=== PATIENT | female | born 1940 | race Caucasian/White ===

== ENCOUNTER → 2024-07-08 | Outpatient (CLI) | payer OTHER, SELFPAY | END | disposition home or self-care (01) | LOC: SLDO 15:41 | PROVIDERS: PCP Nurse Practitioner Family; Referring Provider Nurse Practitioner Family; Visit Provider Nurse Practitioner Family | DX: N39.0 Urinary tract infection, site not specified (principal) | CPT/HCPCS: 87086 ==

== ENCOUNTER 2024-07-21 10:52 | Day surgery (SDC) | payer OTHER, SELFPAY ==
--- NOTE | 2024-07-20 07:00 | EKG_ITS ---
[facility] Test Date: 2024-07-20 Pat Name: ASHA TANG Department: Room: - Gender: Female [employer] Bi Developer: SUZANNE : 1940 Requested By: Gardenia Nash Order Number: [id number] Reading MD: Gardenia Nash Measurements Intervals [place] Rate: 60 P: 67 WV: 162 QRS: 57 QRSD: 132 T: 9 QT: 425 QTc: 427 Interpretive Statements SINUS RHYTHM INTRAVENTRICULAR CONDUCTION DELAY [130+ ms QRS DURATION] ANTEROSEPTAL MYOCARDIAL INFARCTION , OF INDETERMINATE AGE [40+ ms Q WAVE IN V1-V4] No previous ECG available for comparison /store/S0/[id number]
[2024-07-20 16:50] LABS: Basophils # (Auto) 0.1 Thou/mm3 (0.0-0.2); Basophils % (Auto) 1 % (0-2.5); Eosinophils # (Auto) 0.2 Thou/mm3 (0.0-0.5); Eosinophils % (Auto) 2 % (0-10); Hematocrit 34.2 % (36.0-46.0); Hemoglobin 10.8 g/dL (12.0-16.0); Immature Granulocytes % (Auto) 0 % (0-0); Immature Granulocytes Auto 0.02 Thou/mm3 (0.00-0.00); Lymphocytes # (Auto) 2.4 Thou/mm3 (1.0-4.8); Lymphocytes % (Auto) 32 % (10-50); Mean Corpuscular HGB Conc 31.6 g/dl (31.0-37.0); Mean Corpuscular Hemoglobin 25.8 pg (25.0-35.0); Mean Corpuscular Volume 82 fL (80-100); Monocytes # (Auto) 0.6 Thou/mm3 (0.0-0.8); Monocytes % (Auto) 7 % (0-12); Neutrophils # (Auto) 4.4 Thou/mm3 (1.8-7.7); Neutrophils % (Auto) 58 % (37-80); Nucleated Red Blood Cell % 0 /100 WBC (0); Platelet Count 222 Thou/mm3 (140-440); Red Blood Count 4.19 Miln/mm3 (4.00-5.20); White Blood Count 7.6 Thou/mm3 (3.6-11.0)
[2024-07-20 16:54] LABS: INR 1.2 (0.9-1.3); Partial Thromboplastin Time 34.5 Seconds (22.0-36.0); Prothrombin Time 12.7 Seconds (9.0-12.2)
[2024-07-20 17:15] LABS: Anion Gap 9 (7-16); BUN/Creatinine Ratio 19 Ratio (12-20); Blood Urea Nitrogen 17 mg/dL (9-23); Calcium 9.3 mg/dL (8.3-10.6); Carbon Dioxide 28.3 mMol/L (20.0-31.0); Chloride 107 mMol/L (98-107); Creatinine (Component) 0.9 mg/dL (0.6-1.3); Glucose 111 mg/dL (74-106); Osmolality,Calculated 289 (275-295); Potassium 3.9 mMol/L (3.4-5.1); Sodium 144 mMol/L (136-145); eGFR > 60 See Note
[2024-07-21] VITALS (14 sets, daily range): BP systolic 138–234; BP diastolic 55–100; PULSE 55–67; RESP 15–20; TEMP 36.2–36.3; O2SAT 94–97; BMI 26.3
--- NOTE | 2024-07-21 12:45 | ESOP_ITS ---
RE: ASHA TANG : 1940 DATE OF OPERATION: 07/21/2024 PROCEDURE PERFORMED: 1. Diagnostic left heart catheterization, selective coronary angiogram, and left ventricular angiogram, CPT 08395. 2. Conscious sedation 30-minute duration. 3. Ultrasound guided access of the right radial artery. DIAGNOSES: Coronary artery disease, status post stent placement and abnormal nuclear stress test. HISTORY AND INDICATIONS: The patient is an 84-year-old lady with a history of CAD, hypertension, multiple stents in the left anterior descending artery several years ago with recurrent shortness of breath and chest pressure. Cardiac stress test was abnormal, hence coronary angiogram was recommended. The patient is a candidate for intervention and revascularization. DESCRIPTION OF PROCEDURE: The patient was brought to cardiac catheterization laboratory. She was given 2 mg Versed and 25 mcg of fentanyl for sedation. Right radial approach was taken. Right radial artery was cannulated by micropuncture technique. Ultrasound guidance was used and 5-[place] Glidesheath was introduced. Selective right and left coronary angiogram performed by TIG-4, 5-[place] diagnostic catheter. Left heart catheterization and left ventricular angiogram performed by TIG-4 diagnostic catheter. The patient tolerated the procedure well. No complications. TR band was applied. Hemostasis was secured. Coronary angiogram showed following findings. Right coronary artery is large and dominant, showed mild irregularities. No significant stenosis. PDA and PL branches are normal. Left coronary artery system: Left main coronary artery is normal. Left anterior descending artery showed multiple stents in the proximal mid segments. All of them are patent. No significant restenosis. Distal mid LAD showed irregularities. Left circumflex artery used to have one large posterolateral branch. Obtuse marginal branch appears to be totally occluded in the proximal segment. Left ventricular pressure recorded to be 130. EDP 12_. Aortic pressure of 130/80. No gradient across the aortic valve. Left ventricular angiogram showed evidence of normal left ventricular motion, ejection fraction 60%. SUMMARY OF FINDINGS: 1. Widely patent stents involving left anterior descending artery. 2. Mild atherosclerotic plaque involving RCA and LAD insignificant. 3. A 100% occlusion of the first obtuse marginal branch of circumflex artery. RECOMMENDATIONS: The patient is recommended to have continue medical management. Stents are widely patent. OM branch is chronically occluded. There is no distal flow seen. Hence, we will continue medical management since the patient has normal left ventricular function and control of hypertension. DT: 12:23:12 TT: 12:44:00 Ref: [id number] - TID: [id number] [facility]
[2024-07-21] MEDS: hydrALAZINE INJ 20 MG/ML VIAL 10 MG IV (14:43)
== END 2024-07-21 15:25 | disposition home or self-care (01) ==
PROVIDERS: PCP Family Medicine; Referring Provider Internal Medicine Cardiovascular Disease; Visit Provider Internal Medicine Cardiovascular Disease
PROC: (CPT 93458; principal; 2024-07-21 11:30)
DX: I25.118 Atherosclerotic heart disease of native coronary artery with other forms of angina pectoris (principal); I10 Essential (primary) hypertension; Z01.810 Encounter for preprocedural cardiovascular examination; Z95.5 Presence of coronary angioplasty implant and graft; I25.82 Chronic total occlusion of coronary artery; T82.855A Stenosis of coronary artery stent, initial encounter
CPT/HCPCS: 93458; 36415; 80048; 85025; 85610; 85730; 93005; 99152; A4649; C1769; C1887; C1894; J0171; J0360; J0461; J1643; J2250; J2310; J2371; J3010; J3490; Q9967

== ENCOUNTER → 2024-09-04 | Outpatient (CLI) | payer OTHER, SELFPAY ==
--- NOTE | 2024-09-04 08:30 | XR_ITS ---
Examination: Screening digital mammography, bilateral Computer aided detection 3-D breast Tomosynthesis, bilateral Date and time of exam: September 04, 2024 0837 hours Compared to mammograms dating to 12/07/2014 Indication: Screening Technique: Nonmagnified MLO, CC views of the breasts to been obtained, reconstructed from 3-D Tomosynthesis images. R2 computer aided detection program utilized for evaluation of suspicious masses and/or abnormal calcifications. 3-D Tomosynthesis images obtained. Findings: Scattered areas of fibroglandular density. Benign calcifications. No interval suspicious masses Impression: BI-RADS category II: Benign Findings. Recommend 1 year follow-up mammogram.
== END | disposition home or self-care (01) ==
LOC: CDIM 08:24
PROVIDERS: PCP Nurse Practitioner Family; Referring Provider Nurse Practitioner Family; Visit Provider Nurse Practitioner Family
DX: Z12.31 Encounter for screening mammogram for malignant neoplasm of breast (principal); R92.323 Mammographic fibroglandular density, bilateral breasts; R92.1 Mammographic calcification found on diagnostic imaging of breast
CPT/HCPCS: 77063; 77067

== ENCOUNTER → 2024-11-20 | Outpatient (CLI) | payer OTHER, SELFPAY ==
--- NOTE | 2024-11-20 14:38 | XR_ITS ---
EXAMINATION: Cervical spine, 5 views Technique: Cervical spine AP, AP odontoid, lateral, bilateral obliques, 5 views Exam date and time: November 20, 2024, 1505 hrs. Comparison: October 11, 2023. Indications: Neck pain radiating to left arm beginning 2 weeks ago. Findings: Severe osteopenia. No cervical fracture. Grade 1 anterolisthesis C4 on C5 Mild disc narrowing C4-C5 Moderate bilateral neural foraminal stenosis at the C4-C5 level As clinically warranted, MRI cervical spine without contrast follow-up would best assess for soft tissue disc protrusion producing left arm radicular pain Impression: Mild degenerative disc disease C4-C5 with moderate bilateral neural foraminal stenosis at this level.
--- NOTE | 2024-11-20 14:38 | XR_ITS ---
Examination: Bilateral hips, AP pelvis, 5 views Technique: AP, lateral views both hips, AP pelvis, 5 views Exam date and time: November 20, 2024, 1505 hrs. Indications: Severe left hip pain beginning 5 years ago. Findings: Severe osteopenia. Bilateral mild to moderate hip osteoarthritis Bones of the pelvis intact, no hip fracture Impression: Bilateral mild to moderate hip osteoarthritis
== END | disposition home or self-care (01) ==
LOC: CDIM 14:24
PROVIDERS: PCP Nurse Practitioner Family; Referring Provider Nurse Practitioner Family; Visit Provider Nurse Practitioner Family
DX: M16.0 Bilateral primary osteoarthritis of hip (principal); M50.321 Other cervical disc degeneration at C4-C5 level; M48.02 Spinal stenosis, cervical region
CPT/HCPCS: 72050; 73523

== ENCOUNTER 2025-02-23 17:21 | Emergency (ER) | payer OTHER, SELFPAY ==
[2025-02-23 17:30] VITALS: BP 179/78; PULSE 72; RESP 18; TEMP 36.5; O2SAT 96; BMI 25.5
--- NOTE | 2025-02-23 18:04 | EKG_ITS ---
[facility] Test Date: 2025-02-23 Pat Name: ASHA TANG Department: Room: - Gender: Female Try Out Person: : 1940 Requested By: Blue Fitzgerald Order Number: [id number] Reading MD: Blue Fitzgerald Measurements Intervals [place] Rate: 67 P: 96 [place]: 160 QRS: -14 QRSD: 138 T: 81 QT: 421 QTc: 446 Interpretive Statements SINUS RHYTHM LEFT BUNDLE BRANCH BLOCK [120+ ms QRS DURATION, 80+ ms Q/S IN V1/V2, 85+ ms R IN I/aVL/V5/V6] Compared to ECG 07/20/2024 14:31:05 Left bundle-branch block now present Intraventricular conduction delay no longer present Myocardial infarct finding no longer present /store/S0/[id number]/ecg/[id number].pdf
--- NOTE | 2025-02-23 18:04 | XR_ITS ---
Examination: CT brain head without contrast. 2-D sagittal coronal reconstructions Date and time of exam: February 23, 2025, 1833 hours, comparison December 29, 2011 INDICATIONS: Injury to the back of the head today, head pain CTDI: vol (mGy): 45 DLP: (mGycm): 904 Technique: Multiple CT axial sections of the brain have been obtained, 5 mm slice thickness. Contrast has not been administered. 2-D sagittal, coronal reconstructions have been obtained Low dose protocols were performed. One or more of the following dose reduction techniques were used; automated exposure control, adjustment of the mA and/or KV according to patient size, use of iterative reconstruction technique. Findings: No significant ventricular enlargement. Intra-axial or extra-axial hemorrhage density is not seen. No mass effect or midline shift Basal cisterns are not remarkable. Fourth ventricle is midline. Cranial vault intact. Impression: Negative for acute hemorrhage, mass effect or midline shift
--- NOTE | 2025-02-23 18:04 | XR_ITS ---
Examination: CT cervical spine without contrast 2-D sagittal reconstructions 2-D coronal reconstructions 3-D reconstructions. Exam date and time: February 23, 2025, 1833 hours INDICATIONS: Injury to the back of the head and neck today, neck pain CTDI:vol (mGy) 12.7 DLP: (mGycm) 277 Technique: Multiple 2 mm axial sections of the cervical spine have been obtained. The coronal and sagittal reconstructions have been obtained. 3-D reconstructions have been obtained. Low dose protocols were performed. One or more of the following dose reduction techniques were used; automated exposure control, adjustment of the mA and/or KV according to patient size, use of iterative reconstruction technique. Findings: Axial sections demonstrate intact base of the skull. C1 exhibit satisfactory relationship to the odontoid. No acute cervical vertebral body fracture seen. Alignment posterior spinous processes satisfactory. Impression: No acute cervical fracture.
--- NOTE | 2025-02-23 18:05 | PD.EDRME ---
Rapid Medical Screening Exam RME Arrival date/time: 02/23/25 17:21 This is a case of 85-year-old female who came into the emergency room due to fall injury hit his head on a furniture now with headache and neck pain patient blood pressure is also elevated patient is taking blood thinner eliquis Chief Complaint: General Adult/Misc Complain Time Seen by Provider: 02/23/25 18:04 Vital signs: Vital Signs Temperature 97.7 F 02/23/25 17:30 Pulse Rate 72 02/23/25 17:30 Respiratory Rate 18 02/23/25 17:30 Blood Pressure 179/78 H 02/23/25 17:30 Pulse Oximetry (%) 96 02/23/25 17:30 Oxygen Delivery Method Room Air 02/23/25 17:30 Exam: Neurological exam is normal awake alert oriented x 4 no focal deficit GCS 15/15 steady gait patient noted to have contusion of scalp area Clinical Impression: Head injury
[2025-02-23 18:36] LABS: Basophils # (Auto) 0.1 Thou/mm3 (0.0-0.2); Basophils % (Auto) 1 % (0-2.5); Eosinophils # (Auto) 0.1 Thou/mm3 (0.0-0.5); Eosinophils % (Auto) 2 % (0-10); Hematocrit 37.0 % (36.0-46.0); Hemoglobin 11.7 g/dL (12.0-16.0); Immature Granulocytes Auto 0.02 Thou/mm3 (0.00-0.00); Lymphocytes # (Auto) 1.5 Thou/mm3 (1.0-4.8); Lymphocytes % (Auto) 22 % (10-50); Mean Corpuscular HGB Conc 31.6 g/dl (31.0-37.0); Mean Corpuscular Hemoglobin 25.9 pg (25.0-35.0); Mean Corpuscular Volume 82 fL (80-100); Monocytes # (Auto) 0.6 Thou/mm3 (0.0-0.8); Monocytes % (Auto) 8 % (0-12); Neutrophils # (Auto) 4.5 Thou/mm3 (1.8-7.7); Neutrophils % (Auto) 67 % (37-80); Nucleated Red Blood Cell # 0.00 Thou/mm3 (0.00-0.00); Nucleated Red Blood Cell % 0 /100 WBC (0); Platelet Count 252 Thou/mm3 (140-440); RDW Standard Deviation 40.0 fL (36.4-46.3); Red Blood Count 4.52 Miln/mm3 (4.00-5.20); White Blood Count 6.7 Thou/mm3 (3.6-11.0)
[2025-02-23 18:48] LABS: INR 1.2 (0.9-1.3); Partial Thromboplastin Time 33.0 Seconds (22.0-36.0); Prothrombin Time 12.3 Seconds (9.0-12.2)
[2025-02-23 18:50] LABS: Alanine Aminotransferase 10 U/L (10-49); Albumin, Serum 4.6 gm/dL (3.4-4.8); Albumin/Globulin Ratio 1.5 (1.2-2.2); Alkaline Phosphatase 66 U/L (46-116); Anion Gap 9 (7-16); Aspartate Amino Transferase 23 U/L (0-34); BUN/Creatinine Ratio 13 Ratio (12-20); Bilirubin,Total 0.3 mg/dL (0.3-1.2); Blood Urea Nitrogen 12 mg/dL (9-23); Calcium 9.8 mg/dL (8.3-10.6); Calcium (Corrected) 9.8 mg/dL (8.5-10.1); Carbon Dioxide 28.0 mMol/L (20.0-31.0); Chloride 106 mMol/L (98-107); Creatinine (Component) 0.9 mg/dL (0.6-1.3); Estimated Creatinine Clearance 39.1 mL/min (>60); Globulin 3.0 gm/dL (2.3-3.5); Glucose 126 mg/dL (74-106); Osmolality,Calculated 286 (275-295); Potassium 3.9 mMol/L (3.4-5.1); Sodium 143 mMol/L (136-145); Total Protein 7.6 gm/dL (5.7-8.2); Troponin I < 0.020 ng/mL (0.0-0.045); eGFR > 60 See Note
--- NOTE | 2025-02-23 18:54 | EDNOTE_ITS ---
ED General RME/HPI General Chief complaint: General Adult/Misc Complain Stated complaint: HIGH BP 170/68; HIT BACK OF HEAD YESTERDAY Time Seen by Provider: 02/23/25 18:04 Arrival date/time: 02/23/25 17:21 Limitations: no limitations RME / HPI RME / HPI narrative: Dr. Scott's Main ED Evaluation: 85yo female with a history of aFib on Eliquis, HTN presents to the ED for a chief complaint of high blood pressure. Patient states she's had to take 3 doses of her prescribed Hydralazine today due to her blood pressure being high at home. Patient notes she hit the back of her head on a cabinet yesterday when she was standing up. Denies any fall or loss of consciousness. Patient denies any headache, neck pain, dizziness, lightheadedness, chest pain, shortness of breath, or any other associated symp toms. Related Data Home Medications ?Medication ?Instructions ?Recorded ?Confirmed carvedilol 25 mg tablet 25 mg PO BID 05/06/17 losartan 100 mg tablet 0.5 tab PO BID 05/06/1706/24 pantoprazole 40 mg tablet,delayed 40 mg PO QDAY 07/21/24 release acyclovir 200 mg capsule 200 mg PO TID 06/13/2107/21 gabapentin 100 mg capsule 100 mg PO DAILY 06/13/21 hydralazine 25 mg tablet 50 mg PO BID PRN Blood Press ure 06/13/21 07/21/24 apixaban 5 mg tablet (Eliquis) 5 mg PO BID 07/21/24 Held on 07/21/24. Instructions: Resume on 07/23/24. hold eliquis. may resume eliquis on 07/23/2024 aspirin 81 mg chewable tablet 81 mg PO QDAY 07/21/24 0 07/21/24 Held on 07/21/24. Instructions: Resume on 07/23/24. hold aspirin. may resume on 07/23/2024 atorvastatin 10 mg tablet 10 mg PO DAILY 07/21/2406/24 ibuprofen 800 mg tablet (IBU) 800 mg PO Q8H PRN pain 0 07/21/24 07/21/24 isosorbide mononitrate 10 mg tablet 10 mg PO BID 07/2107/21/24 lorazepam 0.5 mg tablet 0.5 mg PO HS PRN insomnia 07/21/24 losartan 50 mg tablet 50 mg PO BID 07/21/24 Allergies Allergy/AdvReac Type Severity Reaction Status Date / Time codeine Allergy Intermediate Rash Verified 02/23/25 17:25 Review of Systems Review of Systems Systems Reviewed: All systems reviewed, normal except as documented Past Medical History Past Medical History NEUROLOGIC: Negative Neurological Disorders or Seizures CARDIAC: Positive Cardiac Disorders, Atrial Fibrillation and Hypertension; Negative Congestive Heart Failure RESPIRATORY: Positive Asthma; Negative Chronic Obstructive Pulmonary Disease (COPD) or Sleep Apnea GASTROINTESTINAL: Positive Gastrointestinal Disorders, Hemorrhoids and Gastroesophageal Reflux Disease GENITOURINARY: Negative Renal Disease MUSCULOSKELETAL: Positive Musculoskeletal Disorders and Arthritis ENDOCRINE: Negative Diabetes Mellitus Type 1 or Diabetes Mellitus Type 2 HEMATOLOGIC: Negative Blood Disorders PSYCHO/SOCIAL: Negative Depression or Anxiety OTHER HISTORY: Negative Blood Transfusions or Anesthesia Reactions Surgical History SURGICAL: Positive Cardiac Surgery, Coronary Stent (2011), Angiogram and Tubal Ligation; Negative Pacemaker Social History SMOKING STATUS: Never smoker ED Exam General Limitations: Present no limitations General appearance: Present alert and in no apparent distress Head Head exam: Present atraumatic Eye Eye exam: Present normal appearance, PERRL and EOMI ENT ENT exam: Present normal exam, normal oropharynx and mucous membranes moist Neck Neck exam: Present normal inspection, full ROM and trachea midline Chest Chest inspection: Present normal inspection and symmetric chest wall rise Respiratory Respiratory exam: Present normal lung sounds bilaterally Cardiovascular Cardiovascular exam: Present regular rate, normal rhythm and normal heart sounds Abdominal Exam Abdominal exam: Present soft and normal bowel sounds Extremities Exam Extremities exam: Present normal inspection and full ROM Back Exam Back exam: Present normal inspection and full ROM Neurological Exam Neurological exam: Present alert, oriented X3 and CN II-XII intact Psychiatric Psychiatric exam: Present normal affect and normal mood Skin Skin exam: Present warm, dry, intact and normal color Course Quality Measures none Orders Category Date Time Status EKG (ED ONLY) *Do not use* NOW Care 02/23/25 18:04 Completed Rigid cervical collar PRN Care 02/23/25 18:[address] cervical spine wo con Stat Exams 02/23/25 18:[address] head/brain wo con Stat Exams 02/23/25 18:04 Completed EKG (ED Only) Stat Exams 02/23/25 18:04 Draft CBC Stat Lab 02/23/25 18:21 Completed CMP [Comprehensive Metabolic Panel] Stat Lab 02/23/25 18:21 Completed PT [Prothrombin Time with INR] Stat Lab 02/23/25 18:21 Completed PTT [Partial Thromboplastin Time] Stat Lab 02/23/25 18:21 Completed Troponin I Stat Lab 02/23/25 18:21 Completed hydrALAZINE INJ [Apresoline Inj] Med 02/23/25 19:27 Discontinued 20 mg IVP X1 ONE Reevaluation(s) Reevaluation #1: Blood pressure has now improved to 179/90. Patient is asymptomatic and is stable to be discharged home. Time: 21:12 Vital Signs Vital signs: Vital Signs Temperature 97.7 F 02/23/25 17:30 Pulse Rate 72 02/23/25 17:30 Respiratory Rate 18 02/23/25 17:30 Blood Pressure 179/78 H 02/23/25 17:30 Pulse Oximetry (%) 96 02/23/25 17:30 Oxygen Delivery Method Room Air 02/23/25 17:30 Discharge Plan Plan Patient Disposition: HOME (Self Care) Patient condition on transfer: Stable Prescriptions/Referrals Prescriptions/Med Rec: No Action pantoprazole 40 mg Tablet,Delayed Release (Dr/Ec) 40 mg PO QDAY losartan 100 mg Tablet 0.5 tab PO BID carvedilol 25 mg Tablet 25 mg PO BID hydralazine 25 mg tablet 50 mg PO BID PRN (Reason: Blood Pressure) acyclovir 200 mg capsule 200 mg PO TID gabapentin 100 mg capsule 100 mg PO DAILY losartan 50 mg tablet 50 mg PO BID isosorbide mononitrate 10 mg tablet 10 mg PO BID ibuprofen [IBU] 800 mg tablet 800 mg PO Q8H PRN (Reason: pain) lorazepam 0.5 mg tablet 0.5 mg PO HS PRN (Reason: insomnia) atorvastatin 10 mg tablet 10 mg PO DAILY Eliquis 5 mg tablet 5 mg PO BID aspirin 81 mg tablet,chewable 81 mg PO QDAY Referrals: Sam Lawler MD [Primary Care Provider, Family Practice] - In 1 week Problem List Clinical Impression: Hypertension Patient/Caregiver Discharge Instructions Education Materials: Controlling High Blood Pressure Additional Instructions: Please take your medication as prescribed. Return to the Emergency Department for worsening symptoms or other concerns. Print Language: Kinyarwanda Stand Alone Forms: Moni Award Info., Patient Portal Info Letter MDM Narrative MDM hospital course (for use when minimal MDM required): Scribe Attestation: 02/23/25 - Nicole Dia am scribing for and in the presence of Dr. Scott. Patient seen and examined by me. She did not fall and hit her head. She has no back pain or neck pain. She states she was getting up and hit the top of her head on the piece of furniture 24 hours ago. Otherwise she is taking her blood pressure medications and felt that her blood pressure was elevated today. Labs reviewed interpreted by me. Otherwise INR is normal. CBC shows no leukocytosis, hemoglobin is approximately 11.7 essentially normal. Liver function test are normal. Leukos slightly elevated at 126. Patient is treated with IV hydralazine. Blood pressure on repeat is 190. At this time the patient is not complaining of headache, shortness of breath, or chest pain. EKG shows no ST elevations or depressions. Blood pressure stable. Return precautions were given and understood. Clinical Information Provided by: patient Medical Records reviewed [facility] (Per chart review, patient was seen here on 04/01/23 for hypertensive urgency.) Meds/Rx considered, not ordered None Labs/Rad/Tests considered, not ordered None Chronic Illness/Social Conditions Explain: Hx aFib on Eliquis, HTN EKG Interpretation EKG #1: EKG Interpretation: EKG done at 1811, sinus rhythm, rate of 67, LBBB, no scarbosa criteria, PA interval: 160, QTc: 446, according to my interpretation. Labs Labs: interpreted by ar Lab(s) Interpretation(s): WBC normal, Hgb 11.7, Hct 37.0, Plt 252, PT 12.3, INR/PTT normal, Glucose 126, Troponin normal. Imaging Imaging interpretation: interpreted by ar Imaging Interpretation(s): [facility] Signed Patient: ASHA TANG [facility]. Record#: [id number] Birthdate: 1940 Age/Sex: 85 / F Location: [facility] Attending Dr: Ordering Physician: Blue Jacob Date of Service: 02/23/25 Procedure(s): CT head/brain wo con Accession Number(s): [id number] cc: Oskar Hearn MD; Sam Lawler MD; Blue Jacob~ Examination: CT brain head without contrast. 2-D sagittal coronal reconstructions Date and time of exam: February 23, 2025, 1833 hours, comparison December 29, 2011 INDICATIONS: Injury to the back of the head today, head pain CTDI: vol (mGy): 45 DLP: (mGycm): 904 Technique: Multiple CT axial sections of the brain have been obtained, 5 mm slice thickness. Contrast has not been administered. 2-D sagittal, coronal reconstructions have been obtained Low dose protocols were performed. One or more of the following dose reduction techniques were used; automated exposure control, adjustment of the mA and/or KV according to patient size, use of iterative reconstruction technique. Findings: No significant ventricular enlargement. Intra-axial or extra-axial hemorrhage density is not seen. No mass effect or midline shift Basal cisterns are not remarkable. Fourth ventricle is midline. Cranial vault intact. Impression: Negative for acute hemorrhage, mass effect or midline shift Dictated By: Oskar Hearn MD Signed By: <Electronically signed by Oskar Hearn MD in OV> 02/23/25 1855 [facility] Signed Patient: ASHA TANG Record#: [id number] Birthdate: 1940 Age/Sex: 85 / F Location: [facility] Attending Dr: Ordering Physician: Blue Jacob Date of Service: 02/23/25 Procedure(s): CT cervical spine wo con Accession Number(s): [id number] cc: Oskar Hearn MD; Sam Lawler MD; Blue Jacob~ Examination: CT cervical spine without contrast 2-D sagittal reconstructions 2-D coronal reconstructions 3-D reconstructions. Exam date and time: February 23, 2025, 183 hours INDICATIONS: Injury to the back of the head and neck today, neck pain CTDI:vol (mGy) 12.7 DLP: (mGycm) 277 Technique: Multiple 2 mm axial sections of the cervical spine have been obtained. The coronal and sagittal reconstructions have been obtained. 3-D reconstructions have been obtained. Low dose protocols were performed. One or more of the following dose reduction techniques were used; automated exposure control, adjustment of the mA and/or KV according to patient size, use of iterative reconstruction technique. Findings: Axial sections demonstrate intact base of the skull. C1 exhibit satisfactory relationship to the odontoid. No acute cervical vertebral body fracture seen. Alignment posterior spinous processes satisfactory. Impression: No acute cervical fracture. Dictated By: Oskar Hearn MD Signed By: <Electronically signed by Oskar Hearn MD in OV> 02/23/25 0444 Medication Administration(s) Medication Administration History Discontinued Medications Hydralazine HCl (Hydralazine Inj 20 Mg/Ml Vial) 20 mg IVP X1 ONE Stop: 02/23/25 19:28 Last Admin: 02/23/25 19:56 Dose: 20 mg Documented By: SM see above Diagnosis Differential Diagnosis ED Complaint MDM: uncontrolled hypertension, dehydration, electrolyte abnormality
[2025-02-23 19:11] VITALS: BP 205/83; PULSE 68; RESP 17; O2SAT 97
[2025-02-23 19:56] VITALS: BP 221/89; PULSE 66
[2025-02-23] MEDS: hydrALAZINE INJ 20 MG/ML VIAL IVP (19:56)
[2025-02-23 20:23] VITALS: BP 213/67; PULSE 68; RESP 18; TEMP 36.5; O2SAT 98
[2025-02-23 21:00] VITALS: BP 179/90
[2025-02-23 21:16] VITALS: BP 179/90; O2SAT 98
== END 2025-02-23 21:16 | disposition home or self-care (01) ==
PROVIDERS: Nurse Practitioner Family; Emergency Provider Emergency Medicine; PCP Family Medicine
DX: I10 Essential (primary) hypertension (principal); I44.7 Left bundle-branch block, unspecified; S19.9XXA Unspecified injury of neck, initial encounter; S09.90XA Unspecified injury of head, initial encounter; W22.8XXA Striking against or struck by other objects, initial encounter
CPT/HCPCS: 36415; 70450; 72125; 80053; 81001; 84484; 85025; 85610; 85730; 93005; 96374; 99283; J0360